=== PATIENT | female | born 1970 | race Caucasian/White ===

== ENCOUNTER 2023-06-08 15:43 | Inpatient (IN) ==
[2023-06-08] MEDS ORDERED: SODIUM CHLORIDE 0.9% 500 ML IV STA (16:27)
[2023-06-08] MEDS ORDERED: ASPIRIN CHEW 324 MG PO STA (16:27)
--- NOTE | 2023-06-08 16:41 | Emergency Department Note ---
History of Present Illness General Chief complaint: Chest Pain Stated complaint: CHEST PAIN,L ARM PAIN,SOB Time Seen by Provider: 06/08/23 16:09 History of Present Illness Maximum Pain Intensity: 4 52-year-old female with past medical history significant for hypertension, hyperlipidemia, chronic tobacco use who presents to the emergency department for evaluation of chest pain. Patient states she started with chest pain around 1 PM this afternoon. She states she was walking around at work when symptoms came on. It is episodic in nature with episodes lasting a few seconds to 1 minute each. She reports that it feels hard to breath and feels lightheaded. She does notice her symptoms to be worse with exertion. It is not pleuritic in nature. She describes her chest pain as a pressure feeling. It is radiating into her left jaw. She does also note that her left arm feels "achy." No lower extremity weakness/numbness/tingling. She also reports last Tuesday she had an episode where vision in both her eyes felt like she was "looking through a drop of water." She states symptoms lasted for 30 minutes and spontaneously resolved. Denies associated headache, dizziness/lightheadedness extremity weakness/numbness/tingling, facial droop, slurred speech, memory loss or confusion, amaurosis fugax. Symptoms have not reoccurred since. Vision is back to her normal. She reports history of SVT vs afib. She is not on any blood thinners. She is suppose to take a baby aspirin but does not. She denies history of blood clots, cancer history, hormone replacement therapy, recent prolonged immobilization or surgeries, lower leg swelling or calf pain. No recent cold-like symptoms, fever/chills, cough, nausea/vomiting, abdominal pain, urinary symptoms, diarrhea/constipation. No hematuria, hematochezia or melena. No history of CVA or OR. She has not taken anything for her symptoms. Home Medications Medication Instructions Recorded Confirmed Type albuterol sulfate 90 mcg/actuation 2 puff inhalation Q6H PRN ASTHMA 10/19/20 06/08/23 History aerosol inhaler ibuprofen 200 mg tablet 400 mg PO Q6H PRN Pain 10/19/20 06/08/23 History aspirin 81 mg tablet,delayed 81 mg PO QAM 03/20/21 06/08/23 History release atorvastatin 20 mg tablet 20 mg PO DAILY 06/08/23 06/08/23 History ibuprofen 800 mg tablet 800 mg PO TID PRN Pain 06/08/23 06/08/23 History metoprolol tartrate 50 mg tablet 50 mg PO TID 06/08/23 06/08/23 History trazodone 50 mg tablet 50 mg PO HS PRN Sleep 06/08/23 06/08/23 History Allergies Allergy/AdvReac Type Severity Reaction Status Date / Time Iodinated Contrast Media Allergy Intermediate CT SCAN Verified 06/08/23 17:14 DYE - HIVES, NEEDED EPI PEN AND BENADRYL lidocaine Allergy Intermediate Hives Verified 06/08/23 17:14 Past Med/Surg History Medical History Anxiety Asthma CONTROLLED Hiatal hernia History of abnormal cervical Pap smear HX 20 YR AGO, PRE CANCEROUS ...HYSTERECTOMY History of colon polyps CANCER FOUND IN POLYP...FOLLOW UP COLONOSCOPY MAY 2021 Tachycardia Surgical History History of arthroscopy of left knee History of cholecystectomy History of colonoscopy History of hysterectomy History of shoulder surgery LEFT Family History Grandfather Family history of esophageal cancer Other Family history of breast cancer in sister Social History Smoking Status: Never smoker Tobacco Type: Cigarettes Cigarettes Per Day: 1 PPD/ADVISED NPO; Do You Dip or Chew Tobacco: No; Hx Alcohol Use: No Preferred Language: Korean Communication Ability: Effective Tail Trimmer Required: No Beliefs That Will Affect Care: None Current Living Situation: Parent Current Living Situation Comment: LIVE WITH DAD Feels Safe at Home: Yes Assistive Devices: Glasses Physical Exam Vital Signs Vital Signs - 24 hr 06/08/23 15:44 06/08/23 16:04 06/08/23 16:48 Temperature 36.6 C Temperature Source Temporal Artery Scan Pulse Rate 72 Pulse Rate [Apical] 64 Pulse Rhythm [Apical] Regular Respiratory Rate 20 18 Respiratory Effort / Characteristics Non-Labored Non-Labored Spontaneous Respiratory Depth Normal Normal Respiratory Pattern Blood Pressure 152/101 H Blood Pressure [Right Arm] 135/86 Blood Pressure Mean 118 Blood Pressure Mean [Right Arm] 102 Blood Pressure Position [Right Arm] Lying Pulse Oximetry 97 92 95 Oxygen Delivery Method Room Air Room Air Room Air Sepsis Recent Fever Within 48 Hours No Sepsis New/Unexplained Change in Mental Status N/A Sepsis Action Taken by Nursing No Action Required 06/08/23 16:50 06/08/23 17:59 06/08/23 20:30 Temperature Temperature Source Pulse Rate 63 Pulse Rate [Apical] 69 52 L Pulse Rhythm [Apical] Regular Regular Respiratory Rate 18 18 Respiratory Effort / Characteristics Non-Labored Spontaneous Non-Labored Spontaneous Respiratory Depth Normal Normal Respiratory Pattern Regular Blood Pressure Blood Pressure [Right Arm] 159/93 H 136/85 Blood Pressure Mean Blood Pressure Mean [Right Arm] 115 102 Blood Pressure Position [Right Arm] Lying Lying Pulse Oximetry 97 95 Oxygen Delivery Method Room Air Room Air Sepsis Recent Fever Within 48 Hours Sepsis New/Unexplained Change in Mental Status Sepsis Action Taken by Nursing 06/08/23 20:54 Temperature Temperature Source Pulse Rate 56 L Pulse Rate [Apical] Pulse Rhythm [Apical] Respiratory Rate Respiratory Effort / Characteristics Respiratory Depth Respiratory Pattern Blood Pressure Blood Pressure [Right Arm] Blood Pressure Mean Blood Pressure Mean [Right Arm] Blood Pressure Position [Right Arm] Pulse Oximetry Oxygen Delivery Method Sepsis Recent Fever Within 48 Hours Sepsis New/Unexplained Change in Mental Status Sepsis Action Taken by Nursing Constitutional: alert and oriented x3. no acute distress. Nontoxic HEENT: normocephalic, atraumatic. normal conjunctiva.PERRLA. EOM's grossly intact. TMs pearly chawla without effusion. Pharynx pink without exudate. Tonsils nonenlarged. Mucus membranes moist Neck: neck is supple, nontender. Midline C-spine nontender Respiratory: lungs are clear to auscultation without wheezes, rhonchi, or rales bilaterally. equal chest rise. normal respiratory effort, no accessory muscle use. No reproducible chest wall tenderness Cardiovascular: normal heart sounds without murmur. regular rate and rhythm. GI: abdomen is soft, nontender. No palpable masses. No rebound tenderness or guarding. No CVA tenderness MSK: Moves all 4 extremities spontaneously. Left upper extremity appears mildly weaker than the right. Range of motion is intact. Peripheral vascular: extremities warm and well perfused with palpable pulses. Neuro: Answers questions appropriately, follows commands. CNII-XII intact. Speech clear, tongue midline, without facial droop. Reports reduced gross sensation left face compared to right. Left upper extremity appears mildly weaker than the right. Normal [id number] test. Normal finger-nose. Psych:appropriate mood and affect. Course Administered Medications Lorazepam (Lorazepam 2 Mg/1 Ml Vial) 0.5 mg IV Q4H PRN PRN Reason: Anxiety Stop: 07/08/23 21:08 Last Admin: 06/08/23 21:20 Dose: 0.5 mg Documented By: TOBIAS Discontinued Medications Aspirin (Aspirin Chew 324 Mg) 324 mg PO NOW STA Stop: 06/08/23 16:28 Last Admin: 06/08/23 16:52 Dose: 324 mg Documented By: TOBIAS Heparin Sodium/Dextrose (Heparin Iv Adult Wt-Based Standard *No* Bolus Protocol) 1 each IV ONE ONE; Protocol Stop: 06/08/23 20:55 Last Admin: 06/08/23 22:14 Dose: Not Given Documented By: TOBIAS Sodium Chloride (Nss) 500 mls @ 999 mls/hr IV .Q31M STA Stop: 06/08/23 16:57 Last Infusion: 06/08/23 17:35 Dose: 0 mls/hr Documented By: Admin: 06/08/23 16:53 Dose: 999 mls/hr Documented By: TOBIAS Nitroglycerin (Nitroglycerin Sl 0.4 Mg/Tab Tab) 0.4 mg SL NOW STA Stop: 06/08/23 20:54 Last Admin: 06/08/23 21:20 Dose: 0.4 mg Documented By: TOBIAS Medical Decision Making Differential Diagnosis Cardiac ischemia, aortic dissection, pulmonary embolism, pneumothorax, pneumonia, pericarditis, myocarditis, cardiac arrhythmia, CVA, electrolyte abnormalities, dehydration, esophageal rupture, GERD, cholecystitis, pancreatitis, musculoskeletal, as well as other pathologies. Laboratory Data Attestation: I reviewed the patient's lab results. 06/08/23 17:58 06/08/23 16:02 Lab Results 06/08/23 06/08/23 06/08/23 Range/Units 16:02 16:02 16:02 WBC Cancelled RBC Cancelled Hgb Cancelled Hct Cancelled MCV Cancelled MCH Cancelled MCHC Cancelled RDW Std Deviation Cancelled RDW Coeff of Joe Cancelled Plt Count Cancelled MPV Cancelled Immature Gran % (Auto) Cancelled Neut % (Auto) Cancelled Lymph % (Auto) Cancelled Clare % (Auto) Cancelled Eos % (Auto) Cancelled Baso % (Auto) Cancelled Neut # (Auto) Cancelled Lymph # (Auto) Cancelled Clare # (Auto) Cancelled Eos # (Auto) Cancelled Baso # (Auto) Cancelled Immature Gran # (Auto) Cancelled Absolute Nucleated RBC Cancelled Nucleated RBC % (auto) Cancelled Neutrophils % (Manual) Cancelled Band Neutrophils % Cancelled Lymphocytes % (Manual) Cancelled Prolymphocyte % Cancelled Reactive Lymphs % (Man) Cancelled Monocytes % (Manual) Cancelled Eosinophils % (Manual) Cancelled Basophils % (Manual) Cancelled Metamyelocytes % (Man) Cancelled Myelocytes % (Man) Cancelled Promyelocytes % (Man) Cancelled Blast Cells % (Manual) Cancelled Plasma Cell % (Manual) Cancelled Other Cells % Cancelled Nucleated RBC % Cancelled Neutrophils # (Manual) Cancelled Band Neutrophils # Cancelled Total Absolute Neuts Cancelled Lymphocytes # (Manual) Cancelled Prolymphocyte # Cancelled Reactive Lymphs # Cancelled Total Abs Lymphocytes Cancelled Monocytes # (Manual) Cancelled Eosinophils # (Manual) Cancelled Basophils # (Manual) Cancelled Metamyelocytes # (Man) Cancelled Myelocytes # (Manual) Cancelled Promyelocytes # (Man) Cancelled Blast Cells # (Man) Cancelled Plasma Cell # (Manual) Cancelled Other Cells # Cancelled Nucleated RBCs # (Man) Cancelled Hypersegmented Neuts Cancelled Hyposegmented Neuts Cancelled Hypogranular Neuts Cancelled Large Granular Lymphs Cancelled # Lrg Granular Lymphs Cancelled Hairy Cells Cancelled Smudge Cells Cancelled Toxic Granulation Cancelled Toxic Vacuolation Cancelled Dohle Bodies Cancelled Minnie Rods Cancelled Platelet Estimate Cancelled Hypogranular Platelets Cancelled Giant Platelets Cancelled Platelet Satelliting Cancelled RBC Morphology Cancelled Polychromasia Cancelled Hypochromasia Cancelled Poikilocytosis Cancelled Basophilic Stippling Cancelled Anisocytosis Cancelled Microcytosis Cancelled Macrocytosis Cancelled Spherocytes Cancelled Pappenheimer Bodies Cancelled Sickle Cells Cancelled Target Cells Cancelled Tear Drop Cells Cancelled Ovalocytes Cancelled Stomatocytes Cancelled [place] Bodies Cancelled Echinocytes Cancelled Acanthocytes (Spur) Cancelled Rouleaux Cancelled RBC Agglutinates Cancelled Schistocytes Cancelled Sezary Cell Cancelled PT Cancelled INR Cancelled APTT Cancelled PTT Ratio Cancelled D-Dimer Cancelled Sodium 138 (136-145) mmol/L Potassium 3.8 (3.5-5.1) mmol/L Chloride 105 (98-107) mmol/L Carbon Dioxide 25 (21-32) mmol/L Anion Gap 8 (3-11) BUN 8 (6-23) mg/dl Creatinine 0.71 (0.6-1.2) mg/dl Est Cr Clr Drug Dosing 101.6 ml/min Est GFR ( Amer) 111.9 ml/min Est GFR (Non-Af Amer) 96.6 ml/min BUN/Creatinine Ratio 11.3 (10-20) Glucose 91 (70-99(Fasting)) mg/dl Calcium 9.9 (8.6-10.3) mg/dl Magnesium (1.7-2.4) mg/dl Total Bilirubin 0.8 (0.2-1.0) mg/dl AST 24 (13-39) U/L ALT 28 (7-52) U/L Alkaline Phosphatase 104 (34-104) U/L Troponin I High Sens 3.3 (0-14) pg/ml Total Protein 8.5 H (6.0-8.3) gm/dl Albumin 4.7 (3.4-5.0) gm/dl Globulin 3.8 (2.5-4.0) gm/dl Albumin/Globulin Ratio 1.2 (0.9-2) Lipase 24 (11-82) U/L Lyme Disease IgG Ab (Negative) Lyme Disease IgM Ab (Negative) Blood Parasites ID Cancelled 06/08/23 06/08/23 06/08/23 Range/Units 16:02 17:57 17:58 WBC 9.45 RBC 5.04 Hgb 15.6 Hct 45.3 MCV 89.9 MCH 31.0 MCHC 34.4 RDW Std Deviation 42.3 RDW Coeff of Joe 12.8 Plt Count 238 MPV 10.7 Immature Gran % (Auto) 0.2 Neut % (Auto) 52.0 Lymph % (Auto) 38.9 Clare % (Auto) 6.7 Eos % (Auto) 1.6 Baso % (Auto) 0.6 Neut # (Auto) 4.91 Lymph # (Auto) 3.68 H Clare # (Auto) 0.63 H Eos # (Auto) 0.15 Baso # (Auto) 0.06 Immature Gran # (Auto) 0.02 Absolute Nucleated RBC Nucleated RBC % (auto) Neutrophils % (Manual) Band Neutrophils % Lymphocytes % (Manual) Prolymphocyte % Reactive Lymphs % (Man) Monocytes % (Manual) Eosinophils % (Manual) Basophils % (Manual) Metamyelocytes % (Man) Myelocytes % (Man) Promyelocytes % (Man) Blast Cells % (Manual) Plasma Cell % (Manual) Other Cells % Nucleated RBC % Neutrophils # (Manual) Band Neutrophils # Total Absolute Neuts Lymphocytes # (Manual) Prolymphocyte # Reactive Lymphs # Total Abs Lymphocytes Monocytes # (Manual) Eosinophils # (Manual) Basophils # (Manual) Metamyelocytes # (Man) Myelocytes # (Manual) Promyelocytes # (Man) Blast Cells # (Man) Plasma Cell # (Manual) Other Cells # Nucleated RBCs # (Man) Hypersegmented Neuts Hyposegmented Neuts Hypogranular Neuts Large Granular Lymphs # Lrg Granular Lymphs Hairy Cells Smudge Cells Toxic Granulation Toxic Vacuolation Dohle Bodies Minnie Rods Platelet Estimate Hypogranular Platelets Giant Platelets Platelet Satelliting RBC Morphology Polychromasia Hypochromasia Poikilocytosis Basophilic Stippling Anisocytosis Microcytosis Macrocytosis Spherocytes Pappenheimer Bodies Sickle Cells Target Cells Tear Drop Cells Ovalocytes Stomatocytes [place] Bodies Echinocytes Acanthocytes (Spur) Rouleaux RBC Agglutinates Schistocytes Sezary Cell PT 11.0 INR 1.0 APTT 30.5 PTT Ratio 1.1 D-Dimer 530 H* Sodium (136-145) mmol/L Potassium (3.5-5.1) mmol/L Chloride (98-107) mmol/L Carbon Dioxide (21-32) mmol/L Anion Gap (3-11) BUN (6-23) mg/dl Creatinine (0.6-1.2) mg/dl Est Cr Clr Drug Dosing ml/min Est GFR ( Amer) ml/min Est GFR (Non-Af Amer) ml/min BUN/Creatinine Ratio (10-20) Glucose (70-99(Fasting)) mg/dl Calcium (8.6-10.3) mg/dl Magnesium (1.7-2.4) mg/dl Total Bilirubin (0.2-1.0) mg/dl AST (13-39) U/L ALT (7-52) U/L Alkaline Phosphatase (34-104) U/L Troponin I High Sens (0-14) pg/ml Total Protein (6.0-8.3) gm/dl Albumin (3.4-5.0) gm/dl Globulin (2.5-4.0) gm/dl Albumin/Globulin Ratio (0.9-2) Lipase (11-82) U/L Lyme Disease IgG Ab Negative (Negative) Lyme Disease IgM Ab Negative (Negative) Blood Parasites ID 06/08/23 Range/Units 18:55 WBC RBC Hgb Hct MCV MCH MCHC RDW Std Deviation RDW Coeff of Joe Plt Count MPV Immature Gran % (Auto) Neut % (Auto) Lymph % (Auto) Clare % (Auto) Eos % (Auto) Baso % (Auto) Neut # (Auto) Lymph # (Auto) Clare # (Auto) Eos # (Auto) Baso # (Auto) Immature Gran # (Auto) Absolute Nucleated RBC Nucleated RBC % (auto) Neutrophils % (Manual) Band Neutrophils % Lymphocytes % (Manual) Prolymphocyte % Reactive Lymphs % (Man) Monocytes % (Manual) Eosinophils % (Manual) Basophils % (Manual) Metamyelocytes % (Man) Myelocytes % (Man) Promyelocytes % (Man) Blast Cells % (Manual) Plasma Cell % (Manual) Other Cells % Nucleated RBC % Neutrophils # (Manual) Band Neutrophils # Total Absolute Neuts Lymphocytes # (Manual) Prolymphocyte # Reactive Lymphs # Total Abs Lymphocytes Monocytes # (Manual) Eosinophils # (Manual) Basophils # (Manual) Metamyelocytes # (Man) Myelocytes # (Manual) Promyelocytes # (Man) Blast Cells # (Man) Plasma Cell # (Manual) Other Cells # Nucleated RBCs # (Man) Hypersegmented Neuts Hyposegmented Neuts Hypogranular Neuts Large Granular Lymphs # Lrg Granular Lymphs Hairy Cells Smudge Cells Toxic Granulation Toxic Vacuolation Dohle Bodies Minnie Rods Platelet Estimate Hypogranular Platelets Giant Platelets Platelet Satelliting RBC Morphology Polychromasia Hypochromasia Poikilocytosis Basophilic Stippling Anisocytosis Microcytosis Macrocytosis Spherocytes Pappenheimer Bodies Sickle Cells Target Cells Tear Drop Cells Ovalocytes Stomatocytes [place] Bodies Echinocytes Acanthocytes (Spur) Rouleaux RBC Agglutinates Schistocytes Sezary Cell PT INR APTT PTT Ratio D-Dimer Sodium (136-145) mmol/L Potassium (3.5-5.1) mmol/L Chloride (98-107) mmol/L Carbon Dioxide (21-32) mmol/L Anion Gap (3-11) BUN (6-23) mg/dl Creatinine (0.6-1.2) mg/dl Est Cr Clr Drug Dosing ml/min Est GFR ( Amer) ml/min Est GFR (Non-Af Amer) ml/min BUN/Creatinine Ratio (10-20) Glucose (70-99(Fasting)) mg/dl Calcium (8.6-10.3) mg/dl Magnesium 2.2 (1.7-2.4) mg/dl Total Bilirubin (0.2-1.0) mg/dl AST (13-39) U/L ALT (7-52) U/L Alkaline Phosphatase (34-104) U/L Troponin I High Sens 3.1 (0-14) pg/ml Total Protein (6.0-8.3) gm/dl Albumin (3.4-5.0) gm/dl Globulin (2.5-4.0) gm/dl Albumin/Globulin Ratio (0.9-2) Lipase (11-82) U/L Lyme Disease IgG Ab (Negative) Lyme Disease IgM Ab (Negative) Blood Parasites ID Imaging Data My Impression: CXR per my interpretation without focal consolidation, pneumothorax or pleural effusion Radiologist's Impression: Chest X-Ray 06/08/23 16:27 XR chest 1V portable CLINICAL HISTORY: Chest pain, nonspecific TECHNIQUE: Single frontal radiograph of the chest was obtained. Comparison: Comparison is made to chest radiograph 10/19/2020 FINDINGS: No lines and tubes are seen. Calcified aortic knob is seen. The lungs are clear. No evidence of pleural effusion or pneumothorax. IMPRESSION: No acute chest disease. ACT 112: Negative or not required by law. Electronically signed by: Rj Arnett M.D. 06/08/2023 5:[address] 06/08/23 16:29 CT SCAN OF THE BRAIN WITHOUT IV CONTRAST CLINICAL HISTORY: Blurry vision. Left upper extremity weakness. Facial numbness. COMPARISON STUDY: No priors. TECHNIQUE: Unenhanced axial CT scan of the brain is performed from the vertex to the skull base. A dose lowering technique was utilized adhering to the principles of ALARA. CT DOSE: 547.75 mGy.cm FINDINGS: Brain parenchyma: The brain parenchyma is normal in appearance. There is no hemorrhage, mass effect, or evidence of acute territorial ischemia by CT criteria. Chawla-white matter differentiation is preserved. No extra-axial fluid collection is seen. Ventricles, sulci, cisterns: Normal in configuration. Intracranial vasculature: There is mild atherosclerotic calcification of the cavernous carotid arteries. Calvarium: Unremarkable. Sinuses and mastoids: The visualized paranasal sinuses are clear. The mastoid air cells are well pneumatized. Orbits: The bony orbits are grossly intact. IMPRESSION: There is no hemorrhage, mass effect, or evidence of acute territorial ischemia by CT criteria. ACT 112: Negative or not required by law. Electronically signed by: Jaiden Astudillo M.D. 06/08/2023 5:10 PM Head MRA 06/08/23 20:54 MR ANGIOGRAM OF THE BRAIN CLINICAL HISTORY: Visual changes. Transient ischemic attack. COMPARISON STUDY: MRI of the brain performed concurrently and 06/08/2023.. TECHNIQUE: 3-D [id number] MR angiography of the intracranial circulation is performed. 3-D tumble views are created and assessed. IV contrast was not administered for this examination. FINDINGS: The internal carotid arteries are widely patent bilaterally, as are the anterior and middle cerebral arteries. The vertebrobasilar system and posterior cerebral arteries are widely patent. The vertebral arteries are codominant. There is a right posterior communicating artery. There is no aneurysm, high-grade stenosis, or focal vessel cutoff seen throughout the intracranial circulation. The brain parenchyma is normal as visualized. IMPRESSION: Unremarkable MR angiogram of the brain. ACT 112: Negative or not required by law. Electronically signed by: Jaiden Astudillo M.D. 06/08/2023 10:23 PM MDM Narrative 52-year-old female who presents to the emergency department for evaluation of intermittent chest pain and an episode of blurry vision. Review pertinent for system past medical history performed. Vital signs in ED stable, afebrile. Patient reports left-sided chest pain that radiates into her jaw and down her left arm since 1 PM this afternoon. It is episodic in nature lasting few seconds to 1 minute at a time. It is associated with exertion. Not pleuritic in nature. She also reports a history of bilateral blurry vision on Tuesday that resolved spontaneously. IV access was established and labs were obtained. CBC without leukocytosis or acute anemia. CMP without significant electrolyte abnormalities. Renal function within normal limits. LFTs and lipase unremarkable. D-dimer 530 (age adjusted 540 ug/L). Troponin x 2 negative. EKG demonstrates normal sinus rhythm at a rate of 72 bpm without evidence of is chemic changes. Chest x-ray unremarkable. On exam, patient is nontoxic-appearing in no acute distress. She is maintaining normal O2 saturations on room air although mildly hypoxic 92-95. She does not wear any oxygen at home. History of smoker. Lungs CTA. Abdomen is benign. Neuro exam demonstrates mild left upper extremity weakness when compared to the right as well as reduced gross sensation to the left side of the face. No other focal deficits. GCS 15. Given exam findings, head CT was performed. No evidence of acute infarct or hemorrhage. Patient was placed on a classroom monitor and at time of my evaluation demonstrates normal sinus rhythm and a rate of 63 bpm. She was given 325 mg chewed aspirin. She declined need for pain medications. Patient was reevaluated on multiple occasions throughout ED stay. She remained stable with no new concerns. Hemodynamically stable. She did not have any episodes of recurrent chest pain. She was updated on all exam findings and test results. Workup today has been relatively reassuring. No evidence of acute OR. No evidence of CVA on CT. I do not suspect aortic dissection. We discussed D- dimer and given higher end of normal with age-adjusted as well as anaphylactic contrast allergy, CTA of the chest was deferred. I do feel patient would benefit from admission to the hospital for further cardiac and neurological workup based on today's presentation. Patient was agreeable to this plan. Case was discussed with hospitalist, Dr. Cash, who graciously accepted patient to his service for further evaluation and management. She was admitted in stable condition. Case was discussed with ED attending, Dr. Hunt who agrees with workup and treatment plan. Impression & Plan Atypical chest pain, Left arm weakness Discharge Plan Visit Data Chief Complaint: Chest Pain Stated Complaint: CHEST PAIN,L ARM PAIN,SOB ED Provider: Jluis Hunt ED Midlevel Provider: Betty Armstrong Discharge Problem: Atypical chest pain, Left arm weakness Patient Disposition: Home - Self-Care Discharge Instructions Interventions: ED Discharge Assessment Last Done: 06/08/23 21:51
--- NOTE | 2023-06-08 17:10 | XRay Report ---
XR chest 1V portable CLINICAL HISTORY: Chest pain, nonspecific TECHNIQUE: Single frontal radiograph of the chest was obtained. Comparison: Comparison is made to chest radiograph 10/19/2020 FINDINGS: No lines and tubes are seen. Calcified aortic knob is seen. The lungs are clear. No evidence of pleur al effusion or pneumothorax. IMPRESSION: No acute chest disease. ACT 112: Negative or not required by law. Electronically signed by: Rj Arnett M.D. 06/08/2023 5:09 PM
--- NOTE | 2023-06-08 17:11 | CT Scan Report ---
CT SCAN OF THE BRAIN WITHOUT IV CONTRAST CLINICAL HISTORY: Blurry vision. Left upper extremity weakness. Facial numbness. COMPARISON STUDY: No priors. TECHNIQUE: Unenhanced axial CT scan of the brain is performed from the vertex to the skull base. A d ose lowering technique was utilized adhering to the principles of ALARA. CT DOSE: 547.75 mGy.cm FINDINGS: Brain parenchyma: The brain parenchyma is normal in appearance. There is no hemorrhage, mass effect, or evidence of acute territorial ischemia by CT criteria. Chawla-white matter differentiation is preser nelly. No extra-axial fluid collection is seen. Ventricles, sulci, cisterns: Normal in configuration. Intracranial vasculature: There is mild atherosclerotic calcification of the cavernous carotid arteri es. Calvarium: Unremarkable. Sinuses and mastoids: The visualized paranasal sinuses are clear. The mastoid air cells are well pneu matized. Orbits: The bony orbits are grossly intact. IMPRESSION: There is no hemorrhage, mass effect, or evidence of acute territorial ischemia by CT rebekah yee. ACT 112: Negative or not required by law. Electronically signed by: Jaiden Astudillo M.D. 06/08/2023 5:10 PM
[2023-06-08 17:14] LABS: Albumin Globulin Ratio 1.2 (0.9-2); Albumin Level 4.7 gm/dl (3.4-5.0); BUN Creatinine Ratio 11.3 (10-20); Bilirubin,Total 0.8 mg/dl (0.2-1.0); Calcium 9.9 mg/dl (8.6-10.3); Creatinine Clr Calc Pharmacy 101.6 ml/min; Est GFR (African American) 111.9 ml/min; Est GFR (Non-African American) 96.6 ml/min; Globulin 3.8 gm/dl (2.5-4.0); Potassium 3.8 mmol/L (3.5-5.1); Total Protein 8.5 gm/dl (6.0-8.3)
[2023-06-08 17:21] LABS: Troponin I High Sensitivity 3.3 pg/ml (0-14)
[2023-06-08 18:35] LABS: Basophils # (auto) 0.06 K/uL (0-0.2); Basophils % (auto) 0.6 %; Eosinophils # (auto) 0.15 K/uL (0-0.50); Eosinophils % (auto) 1.6 %; Hematocrit (blood only) 45.3 % (37.0-47.0); Hemoglobin 15.6 g/dl (12.0-16.0); Immature Granulocytes # (auto) 0.02 K/uL (0.01-0.20); Immature Granulocytes % (auto) 0.2 %; Lymphocytes # (auto) 3.68 K/uL (1.2-3.4); Lymphocytes % (auto) 38.9 %; Mean Corpuscular Hgb Conc 34.4 g/dL (32.0-36.0); Mean Corpuscular Volume 89.9 fL (80.0-100.0); Mean Platelet Volume 10.7 fL (9.4-12.4); Monocytes # (auto) 0.63 K/uL (0.11-0.59); Monocytes % (auto) 6.7 %; Neutrophils # (auto) 4.91 K/uL (1.40-6.50); Platelet Count 238 K/uL (130-400); RDW Coefficient of Variation 12.8 % (11.5-14.5); RDW Standard Deviation 42.3 fL (36.4-46.3); Red Blood Count 5.04 M/uL (4.20-5.40); White Blood Count 9.45 K/ul (4.8-10.8)
[2023-06-08 19:14] LABS: Partial Thromboplastin Ratio 1.1; Partial Thromboplastin Time 30.5 Seconds (21.0-31.0)
[2023-06-08 19:33] LABS: D Dimer 530 ug/L FEU (0-500)
[2023-06-08 19:51] LABS: Troponin I High Sensitivity 3.1 pg/ml (0-14)
[2023-06-08 20:28] LABS: Magnesium 2.2 mg/dl (1.7-2.4)
[2023-06-08] MEDS ORDERED: NITROGLYCERIN SL 0.4 MG/TAB TAB SL STA (20:53)
[2023-06-08] MEDS ORDERED: Heparin IV Adult Wt-Based Standard *NO* Bolus Protocol IV ONE (20:54)
[2023-06-08] MEDS ORDERED: Heparin IV Adult Wt-Based Low-Dose *NO* Bolus Protocol IV SCH (20:55)
--- NOTE | 2023-06-08 20:56 | History & Physical Report ---
Date of Service June 08, 2023 Assessment & Plan (1) Chest pain: Plan: Left-sided chest pain rule out ACS given patient's risk factors for ischemic heart disease Rule out PE given abnormal D-dimer PSVT/paroxysmal atrial flutter as per records, patient currently NSR hypertension, stable hyperlipidemia on statin Rx bronchial asthma, stable ongoing tobacco abuse OBS PCU Aspirin for CAD prevention for now Cardiology consult Re: Chest pain N.p.o. until patient seen by cardiology in anticipation of ischemic workup VQ scan/LE Dopplers for PE workup (CT angio precluded by IV dye allergy) IV heparin until PE ruled out Nicotine patch as needed DVT prophylaxis. IV heparin Full code Text document was generated using [employer] voice recognition software. It may contain grammatical or spelling errors. Kindly contact undersigned for clarification of any documentation item in question. History of Present Illness Chief Complaint: Left sided chest pain Primary Care Provider: Ant Jacobs MD History obtained from patient, family, and records. Medical history significant for PSVT, paroxysmal atrial flutter as per records, hypertension, hyperlipidemia, bronchial asthma, ongoing tobacco abuse. Last week, patient had transient visual disturbance symptoms as if she was lo oking through a drop of water. No headache symptoms. No facial weakness or slurred speech symptoms. No arm or leg weakness. No consultations done. Patient not compliant with home aspirin because she is prone to bleeding. Around 1 PM today, patient noted left-sided chest pain going to her left arm and left jaw. Some shortness of breath. Non pleuritic chest pain. Admits to a lot of of personal and work stress. Medical History as above Surgical History : Left knee surgery, cholecystectomy, SHYLA Family History : Heart disease, breast cancer, DVT, DM, mood disorder Personal/Social history : 1 pack daily, no EtOH intake, [employer] manager Allergies Allergy/AdvReac Type Severity Reaction Status Date / Time Iodinated Contrast Media Allergy Intermediate CT SCAN Verified 06/08/23 17:14 DYE - HIVES, NEEDED EPI PEN AND BENADRYL lidocaine Allergy Intermediate Hives Verified 06/08/23 17:14 Home Medications Medication Instructions Recorded Confirmed Type albuterol sulfate 90 mcg/actuation 2 puff inhalation Q6H PRN ASTHMA 10/19/20 06/08/23 History aerosol inhaler ibuprofen 200 mg tablet 400 mg PO Q6H PRN Pain 10/19/20 06/08/23 History aspirin 81 mg tablet,delayed 81 mg PO QAM 03/20/21 06/08/23 History release atorvastatin 20 mg tablet 20 mg PO DAILY 06/08/23 06/08/23 History ibuprofen 800 mg tablet 800 mg PO TID PRN Pain 06/08/23 06/08/23 History metoprolol tartrate 50 mg tablet 50 mg PO TID 06/08/23 06/08/23 History trazodone 50 mg tablet 50 mg PO HS PRN Sleep 06/08/23 06/08/23 History Past Med/Surg History Medical History Anxiety Asthma CONTROLLED Hiatal hernia History of abnormal cervical Pap smear HX 20 YR AGO, PRE CANCEROUS ...HYSTERECTOMY History of colon polyps CANCER FOUND IN POLYP...FOLLOW UP COLONOSCOPY MAY 2021 Tachycardia Surgical History History of arthroscopy of left knee History of cholecystectomy History of colonoscopy History of hysterectomy History of shoulder surgery LEFT Family History Grandfather Family history of esophageal cancer Other Family history of breast cancer in sister Social History Smoking Status: Current every day smoker Tobacco Type: Cigarettes Cigarettes Per Day: 45; Do You Dip or Chew Tobacco: No; Hx Alcohol Use: No Hx Substance Use: No Preferred Language: Vietnamese Communication Ability: Effective Rehab Department Manager Required: No Beliefs That Will Affect Care: None Current Living Situation: Parent Current Living Situation Comment: lives with father Other Information That Helps Us Care for You: No Feels Safe at Home: Yes Safety Concerns: Feels Safe At This Time Assistive Devices: None Review of Systems Review of Systems: As per HPI, all other systems reviewed and negative Physical Exam Physical Exam: GENERAL: Comfortable, obese, no respiratory distress SKIN: Normal color, warm HEENT: [place] palpebral conjunctivae, no ptosis, moist buccal mucosa NECK : Supple, no tenderness CHEST : CTA, short neck, no tenderness HEART : Bradycardic, no obvious murmurs ABDOMEN: Some distention, nontender EXTREMITIES : No LE swelling/tenderness, no other conspicuous deformities noted NEUROLOGIC : Coherent, no facial asymmetry, no other gross focality Results & Data Results & Data Vital Signs (Past 12 Hours) Vital Signs Temp Pulse Pulse Resp BP BP Pulse Ox 06/08/23 20:30 52 L 18 136/85 95 06/08/23 17:59 69 18 159/93 H 97 06/08/23 16:50 63 06/08/23 16:48 95 06/08/23 16:04 64 18 135/86 92 06/08/23 15:44 36.6 C 72 20 152/101 H 97 O2 Del Method 06/08/23 20:30 Room Air 06/08/23 17:59 Room Air 06/08/23 16:50 06/08/23 16:48 Room Air 06/08/23 16:04 Room Air 06/08/23 15:44 Room Air Laboratory Results Laboratory Results WBC 9.45 K/ul (4.8-10.8) 06/08/23 17:58 RBC 5.04 M/uL (4.20-5.40) 06/08/23 17:58 Hgb 15.6 g/dl (12.0-16.0) 06/08/23 17:58 Hct 45.3 % (37.0-47.0) 06/08/23 17:58 MCV 89.9 fL (80.0-100.0) 06/08/23 17:58 MCH 31.0 pg (25.0-34.0) 06/08/23 17:58 MCHC 34.4 g/dL (32.0-36.0) 06/08/23 17:58 RDW Std Deviation 42.3 fL (36.4-46.3) 06/08/23 17:58 RDW Coeff of Joe 12.8 % (11.5-14.5) 06/08/23 17:58 Plt Count 238 K/uL (130-400) 06/08/23 17:58 MPV 10.7 fL (9.4-12.4) 06/08/23 17:58 Immature Gran % (Auto) 0.2 % 06/08/23 17:58 Neut % (Auto) 52.0 % 06/08/23 17:58 Lymph % (Auto) 38.9 % 06/08/23 17:58 [place] % (Auto) 6.7 % 06/08/23 17:58 Eos % (Auto) 1.6 % 06/08/23 17:58 Baso % (Auto) 0.6 % 06/08/23 17:58 Neut # (Auto) 4.91 K/uL (1.40-6.50) 06/08/23 17:58 Lymph # (Auto) 3.68 K/uL (1.2-3.4) H 06/08/23 17:58 [place] # (Auto) 0.63 K/uL (0.11-0.59) H 06/08/23 17:58 Eos # (Auto) 0.15 K/uL (0-0.50) 06/08/23 17:58 Baso # (Auto) 0.06 K/uL (0-0.2) 06/08/23 17:58 Immature Gran # (Auto) 0.02 K/uL (0.01-0.20) 06/08/23 17:58 Absolute Nucleated RBC Cancelled 06/08/23 16:02 Nucleated RBC % (auto) Cancelled 06/08/23 16:02 Neutrophils % (Manual) Cancelled 06/08/23 16:02 Band Neutrophils % Cancelled 06/08/23 16:02 Lymphocytes % (Manual) Cancelled 06/08/23 16:02 Prolymphocyte % Cancelled 06/08/23 16:02 Reactive Lymphs % (Man) Cancelled 06/08/23 16:02 Monocytes % (Manual) Cancelled 06/08/23 16:02 Eosinophils % (Manual) Cancelled 06/08/23 16:02 Basophils % (Manual) Cancelled 06/08/23 16:02 Metamyelocytes % (Man) Cancelled 06/08/23 16:02 Myelocytes % (Man) Cancelled 06/08/23 16:02 Promyelocytes % (Man) Cancelled 06/08/23 16:02 Blast Cells % (Manual) Cancelled 06/08/23 16:02 Plasma Cell % (Manual) Cancelled 06/08/23 16:02 Other Cells % Cancelled 06/08/23 16:02 Nucleated RBC % Cancelled 06/08/23 16:02 Neutrophils # (Manual) Cancelled 06/08/23 16:02 Band Neutrophils # Cancelled 06/08/23 16:02 Total Absolute Neuts Cancelled 06/08/23 16:02 Lymphocytes # (Manual) Cancelled 06/08/23 16:02 Prolymphocyte # Cancelled 06/08/23 16:02 Reactive Lymphs # Cancelled 06/08/23 16:02 Total Abs Lymphocytes Cancelled 06/08/23 16:02 Monocytes # (Manual) Cancelled 06/08/23 16:02 Eosinophils # (Manual) Cancelled 06/08/23 16:02 Basophils # (Manual) Cancelled 06/08/23 16:02 Metamyelocytes # (Man) Cancelled 06/08/23 16:02 Myelocytes # (Manual) Cancelled 06/08/23 16:02 Promyelocytes # (Man) Cancelled 06/08/23 16:02 Blast Cells # (Man) Cancelled 06/08/23 16:02 Plasma Cell # (Manual) Cancelled 06/08/23 16:02 Other Cells # Cancelled 06/08/23 16:02 Nucleated RBCs # (Man) Cancelled 06/08/23 16:02 Hypersegmented Neuts Cancelled 06/08/23 16:02 Hyposegmented Neuts Cancelled 06/08/23 16:02 Hypogranular Neuts Cancelled 06/08/23 16:02 Large Granular Lymphs Cancelled 06/08/23 16:02 # Lrg Granular Lymphs Cancelled 06/08/23 16:02 Hairy Cells Cancelled 06/08/23 16:02 Smudge Cells Cancelled 06/08/23 16:02 Toxic Granulation Cancelled 06/08/23 16:02 Toxic Vacuolation Cancelled 06/08/23 16:02 Dohle Bodies Cancelled 06/08/23 16:02 Minnie Rods Cancelled 06/08/23 16:02 Platelet Estimate Cancelled 06/08/23 16:02 Hypogranular Platelets Cancelled 06/08/23 16:02 Giant Platelets Cancelled 06/08/23 16:02 Platelet Satelliting Cancelled 06/08/23 16:02 RBC Morphology Cancelled 06/08/23 16:02 Polychromasia Cancelled 06/08/23 16:02 Hypochromasia Cancelled 06/08/23 16:02 Poikilocytosis Cancelled 06/08/23 16:02 Basophilic Stippling Cancelled 06/08/23 16:02 Anisocytosis Cancelled 06/08/23 16:02 Microcytosis Cancelled 06/08/23 16:02 Macrocytosis Cancelled 06/08/23 16:02 Spherocytes Cancelled 06/08/23 16:02 Pappenheimer Bodies Cancelled 06/08/23 16:02 Sickle Cells Cancelled 06/08/23 16:02 Target Cells Cancelled 06/08/23 16:02 Tear Drop Cells Cancelled 06/08/23 16:02 Ovalocytes Cancelled 06/08/23 16:02 Stomatocytes Cancelled 06/08/23 16:02 Isabel-Boykin Bodies Cancelled 06/08/23 16:02 Echinocytes Cancelled 06/08/23 16:02 Acanthocytes (Spur) Cancelled 06/08/23 16:02 Rouleaux Cancelled 06/08/23 16:02 RBC Agglutinates Cancelled 06/08/23 16:02 Schistocytes Cancelled 06/08/23 16:02 Sezary Cell Cancelled 06/08/23 16:02 PT 11.0 Seconds (9.0-12.0) 06/08/23 17:57 INR 1.0 (0.9-1.1) 06/08/23 17:57 APTT 30.5 Seconds (21.0-31.0) 06/08/23 17:57 PTT Ratio 1.1 06/08/23 17:57 D-Dimer 530 ug/L FEU (0-500) H* 06/08/23 17:57 Sodium 138 mmol/L (136-145) 06/08/23 16:02 Potassium 3.8 mmol/L (3.5-5.1) 06/08/23 16:02 Chloride 105 mmol/L (98-107) 06/08/23 16:02 Carbon Dioxide 25 mmol/L (21-32) 06/08/23 16:02 Anion Gap 8 (3-11) 06/08/23 16:02 BUN 8 mg/dl (6-23) 06/08/23 16:02 Creatinine 0.71 mg/dl (0.6-1.2) 06/08/23 16:02 Est Cr Clr Drug Dosing 101.6 ml/min 06/08/23 16:02 Est GFR ( Amer) 111.9 ml/min 06/08/23 16:02 Est GFR (Non-Af Amer) 96.6 ml/min 06/08/23 16:02 BUN/Creatinine Ratio 11.3 (10-20) 06/08/23 16:02 Glucose 91 mg/dl (70-99(Fasting)) 06/08/23 16:02 Calcium 9.9 mg/dl (8.6-10.3) 06/08/23 16:02 Magnesium 2.2 mg/dl (1.7-2.4) 06/08/23 18:55 Total Bilirubin 0.8 mg/dl (0.2-1.0) 06/08/23 16:02 AST 24 U/L (13-39) 06/08/23 16:02 ALT 28 U/L (7-52) 06/08/23 16:02 Alkaline Phosphatase 104 U/L (34-104) 06/08/23 16:02 Troponin I High Sens 3.1 pg/ml (0-14) 06/08/23 18:55 Total Protein 8.5 gm/dl (6.0-8.3) H 06/08/23 16:02 Albumin 4.7 gm/dl (3.4-5.0) 06/08/23 16:02 Globulin 3.8 gm/dl (2.5-4.0) 06/08/23 16:02 Albumin/Globulin Ratio 1.2 (0.9-2) 06/08/23 16:02 Lipase 24 U/L (11-82) 06/08/23 16:02 Blood Parasites ID Cancelled 06/08/23 16:02 Impressions Chest X-Ray 06/08/23 16:27 XR chest 1V portable CLINICAL HISTORY: Chest pain, nonspecific TECHNIQUE: Single frontal radiograph of the chest was obtained. Comparison: Comparison is made to chest radiograph 10/19/2020 FINDINGS: No lines and tubes are seen. Calcified aortic knob is seen. The lungs are clear. No evidence of pleural effusion or pneumothorax. IMPRESSION: No acute chest disease. ACT 112: Negative or not required by law. Electronically signed by: Rj Arnett M.D. 06/08/2023 5:[address] 06/08/23 16:29 CT SCAN OF THE BRAIN WITHOUT IV CONTRAST CLINICAL HISTORY: Blurry vision. Left upper extremity weakness. Facial numbness. COMPARISON STUDY: No priors. TECHNIQUE: Unenhanced axial CT scan of the brain is performed from the vertex to the skull base. A dose lowering technique was utilized adhering to the principles of ALARA. CT DOSE: 547.75 mGy.cm FINDINGS: Brain parenchyma: The brain parenchyma is normal in appearance. There is no hemorrhage, mass effect, or evidence of acute territorial ischemia by CT criteria. Chawla-white matter differentiation is preserved. No extra-axial fluid collection is seen. Ventricles, sulci, cisterns: Normal in configuration. Intracranial vasculature: There is mild atherosclerotic calcification of the cavernous carotid arteries. Calvarium: Unremarkable. Sinuses and mastoids: The visualized paranasal sinuses are clear. The mastoid air cells are well pneumatized. Orbits: The bony orbits are grossly intact. IMPRESSION: There is no hemorrhage, mass effect, or evidence of acute territorial ischemia by CT criteria. ACT 112: Negative or not required by law. Electronically signed by: Jaiden Astudillo M.D. 06/08/2023 5:10 PM Brain MRI: No acute intracranial abnormality. MRA brain: Unremarkable MR angiogram of the brain. Diagnostic Findings EKG as per my interpretation : Rate 70, NSR, LAD, LAFB, septal infarct, no ischemia
[2023-06-08] MEDS ORDERED: PROMETHAZINE HCL 12.5 MG in SODIUM CHLORIDE 0.9% 50 ML IV PRN (21:00)
[2023-06-08] MEDS ORDERED: traMADol HCL 50 MG TABLET PO PRN (21:00)
[2023-06-08] MEDS ORDERED: LORazepam 0.5 MG TAB PO PRN (21:00)
[2023-06-08] MEDS ORDERED: MoRPHine SULFATE 4 MG/ML 1 ML CARP\\VIAL IV PRN (21:00)
[2023-06-08] MEDS ORDERED: LORazepam 2 MG/1 ML VIAL IV PRN (21:09)
[2023-06-08] MEDS ORDERED: HEPARIN SODIUM/DEXTROSE 25,000 UNITS/500 ML BAG IV SCH ×2 (21:15)
[2023-06-08 21:46] LABS: Lyme Ab IgG w/WB Rflx Negative (Negative); Lyme Ab IgM w/WB Rflx Negative (Negative)
[2023-06-08] MEDS ORDERED: ACETAMINOPHEN 325 MG TAB PO PRN (21:51)
[2023-06-08] MEDS ORDERED: traZODone HCL 50 MG TAB PO PRN (21:51)
--- NOTE | 2023-06-08 22:25 | Magnetic Resonance Report ---
MR ANGIOGRAM OF THE BRAIN CLINICAL HISTORY: Visual changes. Transient ischemic attack. COMPARISON STUDY: MRI of the brain performed concurrently and 06/08/2023.. TECHNIQUE: 3-D [id number] MR angiography of the intracranial circulation is performed. 3-D tumble views are created and assessed. IV contrast was not administered for this examination. FINDINGS: The internal carotid arteries are widely patent bilaterally, as are the anterior and middle cerebral arteries. The vertebrobasilar system and posterior cerebral arteries are widely patent. The vertebral arteries are codominant. There is a right posterior communicating artery. There is no aneu rysm, high-grade stenosis, or focal vessel cutoff seen throughout the intracranial circulation. The b rain parenchyma is normal as visualized. IMPRESSION: Unremarkable MR angiogram of the brain. ACT 112: Negative or not required by law. Electronically signed by: Jaiden Astudillo M.D. 06/08/2023 10:23 PM
--- NOTE | 2023-06-08 22:41 | Magnetic Resonance Report ---
MRI OF THE BRAIN WITHOUT IV CONTRAST CLINICAL HISTORY: Transient ischemic attack. COMPARISON STUDY: CT of the brain dated 06/08/2023. TECHNIQUE: MRI of the brain was performed utilizing various T1 and T2-weighted sequences in the axial , sagittal, and coronal planes. IV contrast was not administered for this examination. FINDINGS: Brain parenchyma: The brain parenchyma is normal in appearance. There is no hemorrhage or mass effect . There is no restricted diffusion to suggest acute ischemia. Chawla-white matter differentiation is pr eserved. No extra-axial fluid collection is seen. The cerebellar tonsils are normal in configuration. Ventricles, sulci, and cisterns: Normal in configuration. Pituitary and sella: Unremarkable. Intracranial vasculature: Normal flow voids are maintained at the skull base. Orbits: The bony orbits are grossly intact. Orbital contents are normal in appearance. Sinuses and mastoids: There is a 12 mm retention cyst in the right maxillary antrum. The remaining pa ranasal sinuses and the mastoid air cells are clear. Calvarium: Unremarkable. Cervical cord: Partially visualized cervical spinal cord is normal in morphology and signal intensity . IMPRESSION: No acute intracranial abnormality. ACT 112: Negative or not required by law. Electronically signed by: Jaiden Astudillo M.D. 06/08/2023 10:39 PM
--- NOTE | 2023-06-08 23:39 | Ultrasound Report ---
ULTRASOUND BILATERAL LOWER EXTREMITY VENOUS CLINICAL HISTORY: Atypical chest pain. Elevated d-dimer. Clinical concern for deep venous thrombosis. COMPARISON STUDY: Left lower extremity venous ultrasound dated 05/18/2019. TECHNIQUE: Real-time, grayscale, and color Doppler sonography of the deep veins of the right and left lower extremity was performed from the inguinal crease to the calf. Compression and augmentation wer e utilized. FINDINGS: There is no sonographic evidence of deep venous thrombosis identified in the right or left lower extremity. The common femoral, superficial femoral, and popliteal veins are patent and normally compressible bilaterally. The greater saphenous vein and the profunda femoris vein at the junction w ith the common femoral vein are clear in both legs. The visualized calf veins are patent bilaterally. IMPRESSION: There is no sonographic evidence of deep venous thrombosis identified in the right or lef t lower extremity. ACT 112: Negative or not required by law. Electronically signed by: Jaiden Astudillo M.D. 06/08/2023 11:37 PM
[2023-06-09] MEDS ORDERED: D5W AND LACTATED RINGERS 1,000 ML IV SCH
[2023-06-09 04:53] LABS: Hematocrit (blood only) 43.4 % (37.0-47.0); Mean Corpuscular Hemoglobin 30.5 pg (25.0-34.0); Mean Corpuscular Hgb Conc 34.6 g/dL (32.0-36.0); Mean Corpuscular Volume 88.4 fL (80.0-100.0); Mean Platelet Volume 10.6 fL (9.4-12.4); Platelet Count 217 K/uL (130-400); RDW Coefficient of Variation 12.7 % (11.5-14.5); RDW Standard Deviation 41.4 fL (36.4-46.3); Red Blood Count 4.91 M/uL (4.20-5.40); White Blood Count 8.22 K/ul (4.8-10.8)
[2023-06-09 05:09] LABS: BUN Creatinine Ratio 13.6 (10-20); Calcium 8.7 mg/dl (8.6-10.3); Creatinine Clr Calc Pharmacy 122.3 ml/min; Est GFR (African American) 120.4 ml/min; Est GFR (Non-African American) 103.9 ml/min; Potassium 3.7 mmol/L (3.5-5.1)
[2023-06-09 05:16] LABS: Troponin I High Sensitivity 2.7 pg/ml (0-14)
[2023-06-09 05:18] LABS: Basophils # (auto) 0.05 K/uL (0-0.2); Basophils % (auto) 0.6 %; Eosinophils # (auto) 0.15 K/uL (0-0.50); Eosinophils % (auto) 1.8 %; Immature Granulocytes # (auto) 0.01 K/uL (0.01-0.20); Immature Granulocytes % (auto) 0.1 %; Lymphocytes # (auto) 4.43 K/uL (1.2-3.4); Lymphocytes % (auto) 53.9 %; Monocytes # (auto) 0.52 K/uL (0.11-0.59); Monocytes % (auto) 6.3 %; Neutrophils # (auto) 3.06 K/uL (1.40-6.50); Neutrophils % (auto) 37.3 %
[2023-06-09 05:23] LABS: Partial Thromboplastin Ratio 1.3; Partial Thromboplastin Time 37.3 Seconds (21.0-31.0)
--- NOTE | 2023-06-09 07:13 | Cardiology Consultation ---
Date of Consultation June 09, 2023 Assessment & Plan (1) Chest pain: (2) HAYWOOD (dyspnea on exertion): (3) HLD (hyperlipidemia): Plan 52-year-old female with past medical history of possible atrial fibrillation/flutter versus SVT. Presented for symptoms of exertional chest pain and shortness of breath. Cardiac workup has been unremarkable thus far without acute ischemic changes on EKG as well as a negative high-sensitivity troponin x 4. Will proceed with an exercise stress echo Continue cardiovascular risk reduction medications including aspirin 81 mg daily and atorvastatin 20 mg daily. Please refer to physician addendum for further information and full plan of care. Supervising Physician Co-Signing Physician Notes Attending Staff: Pt seen and evaluated with [facility] staff. Concur with observations and plans 52 yo woman presenting with chest pain Left sided chest discomfort Lightheadedness Similar presentation in 2020 EKG - Sinus 50-70's - no acute ischemic changes Troponin - negative x 4 No pleuritic component Pt started on Heparin Hx: Palpitations Possible afib? Atypical Chest Pain Hyperlipidemia - LDL 69 Smoker - 1.5 ppd Dye Allergy Plans: SBP @ goal HR 50's LDL 69 Continue Lipitor 20 mg po per day Continue ASA 81 mg po per day On Lopressor 50 mg po TID Please hold AM Beta sarah to grt to goal HR Risk stratification for underlying coronary disease Plans for Stress ECHOcardiogram NPO except for meds IF sx recur, would pretreat with steroids and do a coronary CTA Mart Freeman History of Present Illness Reason for Consultation: Chest pain and dyspnea on exertion [facility]ing Phys[facility] Attending Physician: Ciaran Jaquez MD History of Present Illness 52-year-old female who presented to emergency department due to symptoms of chest discomfort. She is a manager web at [employer] and was walking through her building hanging close and doing other exertional activities. Developed left-sided chest discomfort located under the left breast described as a pressure sensation but was also sharp at times with radiation to the left side of her jaw and left arm. She became dyspneic and a little lightheaded. Sat and rest with improvement in symptoms. Overall feels fatigue and lower stamina over the last 4 to 6 months. Has had increased stress at home, caring for her father who has cancer. EKG revealed normal sinus rhythm in the 70s, no acute ST segment changes, repeat EKG showed sinus bradycardia 49 bpm. High-sensitivity troponin negative x 4. D-dimer was mildly elevated however given her history of contrast dye allergy CTA of the chest was deferred. Venous Dopplers of the lower extremities negative for DVT. Blood pressures have been well-controlled. Heart rates have been bradycardic in the 50s. Echo pending. Heparin drip started by primary team. Per outpatient cardiology records dated 10/06/2021 patient had similar symptoms/concerns and a nuclear stress test was completed at this time which was nonischemic. As an outpatient, from a cardiology standpoint, she is maintained on metoprolol tartrate, aspirin 81 mg daily, and atorvastatin 20 mg daily. Upon entrance into the room patient resting comfortably in bed. She is currently chest pain-free and has not had any return of chest pain overnight. Denies any palpitations. No shortness of breath. No lightheadedness or dizziness. Will occasionally have ankle swelling, this is chronic for her. Telemetry revealing sinus bradycardia with an average heart rate in the 50s. No atrial fibrillation or flutter noted. Outpatient cardiology team: Follows with Daphney Rothman PA-C Past medical history: Subjective palpitations History of atrial fib/flutter versus SVT diagnosed fall 2019-never has been on anticoagulation History of atypical chest pain Dyslipidemia Tobacco use, 1.5 packs/day Contrast dye allergy Allergies Allergy/AdvReac Type Severity Reaction Status Date / Time Iodinated Contrast Media Allergy Intermediate CT SCAN Verified 06/08/23 17:14 DYE - HIVES, NEEDED EPI PEN AND BENADRYL lidocaine Allergy Intermediate Hives Verified 06/08/23 17:14 Home Medications Medication Instructions Recorded Confirmed Type albuterol sulfate 90 mcg/actuation 2 puff inhalation Q6H PRN ASTHMA 10/19/20 06/08/23 History aerosol inhaler ibuprofen 200 mg tablet 400 mg PO Q6H PRN Pain 10/19/20 06/08/23 History aspirin 81 mg tablet,delayed 81 mg PO QAM 03/20/21 06/08/23 History release atorvastatin 20 mg tablet 20 mg PO DAILY 06/08/23 06/08/23 History ibuprofen 800 mg tablet 800 mg PO TID PRN Pain 06/08/23 06/08/23 History metoprolol tartrate 50 mg tablet 50 mg PO TID 06/08/23 06/08/23 History trazodone 50 mg tablet 50 mg PO HS PRN Sleep 06/08/23 06/08/23 History Patient History Medical History Anxiety Asthma CONTROLLED Hiatal hernia History of abnormal cervical Pap smear HX 20 YR AGO, PRE CANCEROUS ...HYSTERECTOMY History of colon polyps CANCER FOUND IN POLYP...FOLLOW UP COLONOSCOPY MAY 2021 Tachycardia Surgical History History of arthroscopy of left knee History of cholecystectomy History of colonoscopy History of hysterectomy History of shoulder surgery LEFT Family History Grandfather Family history of esophageal cancer Other Family history of breast cancer in sister Social History Smoking Status: Current every day smoker Tobacco Type: Cigarettes Cigarettes Per Day: 45; Do You Dip or Chew Tobacco: No; Hx Alcohol Use: No Hx Substance Use: No Preferred Language: Chinese Communication Ability: Effective Dried Fruit Washer Required: No Beliefs That Will Affect Care: None Current Living Situation: Parent Current Living Situation Comment: lives with father Other Information That Helps Us Care for You: No Feels Safe at Home: Yes Safety Concerns: Feels Safe At This Time Assistive Devices: None Review of Systems Review of Systems: All systems reviewed & are unremarkable except as noted in HPI & below Physical Exam Physical Exam: Overweight Glasses S1S2 CTA B No C/C/E Warm and perfusing Constitutional: WD/WN, vitals as above well nourished; no acute distress Neck: normal visual inspection and trachea midline Respiratory: normal respiratory effort; no labored breathing and no cough Auscultation: + crackles (BL bases) Cardiovascular: Rate/Rhythm: regular rate and + bradycardic Heart Sounds: normal S1, normal S2 and + murmur (soft systolic murmur) Vessels: no JVD Extremities: no calf tenderness and no edema Chest (Breasts): Chest: normal inspection of chest Gastrointestinal (Abdomen): normal bowel sounds, soft, nontender, no hepatosplenomegaly Skin: no rashes, warm and dry Psychiatric: A+Ox3, euthymic affect Results & Data Vital Signs (Past 12 Hours) Vital Signs Temp Pulse Pulse Resp BP BP BP 06/09/23 06:54 36.4 C L 52 L 19 130/86 06/09/23 06:35 06/09/23 06:26 36.5 C 69 16 127/79 06/08/23 21:51 36.5 C 69 16 127/79 06/08/23 21:51 06/09/23 05:30 60 20 103/66 06/09/23 05:01 52 L 19 105/76 06/09/23 04:30 58 L 20 108/74 06/09/23 04:00 59 L 21 114/79 06/09/23 03:30 58 L 20 125/86 06/09/23 03:00 58 L 22 119/80 06/09/23 02:30 58 L 19 116/80 06/09/23 02:01 52 L 26 H 125/82 06/09/23 02:00 53 L 26 H 06/09/23 01:30 77 27 H 06/09/23 01:02 76 24 114/56 L 06/09/23 00:31 49 L 16 140/86 06/09/23 00:21 50 L 15 122/82 06/09/23 00:18 50 L 12 06/08/23 20:54 56 L 06/08/23 20:30 52 L 18 136/85 Pulse Ox Pulse Ox O2 Del Method O2 Del Method 06/09/23 06:54 93 Room Air 06/09/23 06:35 Room Air 06/09/23 06:26 93 Room Air 06/08/23 21:51 93 Room Air 06/08/23 21:51 93 Room Air 06/09/23 05:30 91 Room Air 06/09/23 05:01 93 Room Air 06/09/23 04:30 92 Room Air 06/09/23 04:00 92 Room Air 06/09/23 03:30 91 Room Air 06/09/23 03:00 91 Room Air 06/09/23 02:30 91 Room Air 06/09/23 02:01 92 Room Air 06/09/23 02:00 92 Room Air 06/09/23 01:30 94 Room Air 06/09/23 01:02 93 Room Air 06/09/23 00:31 95 Room Air 06/09/23 00:21 98 Room Air 06/09/23 00:18 06/08/23 20:54 06/08/23 20:30 95 Room Air Laboratory Results Cardiac Enzymes 06/08/23 06/08/23 06/08/23 Range/Units 16:02 18:55 21:15 AST 24 (13-39) U/L Troponin I High Sens 3.3 3.1 3.0 (0-14) pg/ml 06/09/23 Range/Units 04:23 AST (13-39) U/L Troponin I High Sens 2.7 (0-14) pg/ml Coagulation 06/08/23 06/08/23 06/09/23 Range/Units 16:02 17:57 04:23 PT Cancelled 11.0 APTT Cancelled 30.5 37.3 H Lipids 06/09/23 Range/Units 04:23 Triglycerides 85 (0-150) mg/dl Cholesterol 115 (0-200) mg/dl HDL Cholesterol 29 mg/dl Cholesterol/HDL Ratio 4.0 (0-5) CBC 06/08/23 06/08/23 06/09/23 Range/Units 16:02 17:58 04:23 WBC Cancelled 9.45 8.22 RBC Cancelled 5.04 4.91 Hgb Cancelled 15.6 15.0 Hct Cancelled 45.3 43.4 Plt Count Cancelled 238 217 Neut # (Auto) Cancelled 4.91 3.06 Lymph # (Auto) Cancelled 3.68 H 4.43 H [place] # (Auto) Cancelled 0.63 H 0.52 Eos # (Auto) Cancelled 0.15 0.15 Baso # (Auto) Cancelled 0.06 0.05 Comprehensive Metabolic Panel 06/08/23 06/09/23 Range/Units 16:02 04:23 Sodium 138 138 (136-145) mmol/L Potassium 3.8 3.7 (3.5-5.1) mmol/L Chloride 105 111 H (98-107) mmol/L Carbon Dioxide 25 23 (21-32) mmol/L BUN 8 8 (6-23) mg/dl Creatinine 0.71 0.59 L (0.6-1.2) mg/dl Glucose 91 89 (70-99(Fasting)) mg/dl Calcium 9.9 8.7 (8.6-10.3) mg/dl AST 24 (13-39) U/L ALT 28 (7-52) U/L Alkaline Phosphatase 104 (34-104) U/L Total Protein 8.5 H (6.0-8.3) gm/dl Albumin 4.7 (3.4-5.0) gm/dl Intake and Output 06/08/23 06/09/23 06/09/23 22:59 06:59 14:59 Intake Total 500 / 609.083 109.083 / 609.083 Balance 500 / 609.083 109.083 / 609.083 Intake: IV 500 / 609.083 109.083 / 609.083 Heparin Sodium/Dextrose 25,000 109.083 / 109.083 units In 500 ml @ 850 UNITS/HR 17 mls/hr IV .Q24H DINAH Rx#: [id number] Sodium Chloride 0.9% 500 ml @ 500 / 500 999 mls/hr IV .Q31M STA Rx#: [id number] Other: Weight 95.6 kg 94.7 kg Weight Measurement Method Chair Scale Standing Scale Diagnostic Findings ECHO PENDING* OUTPATIENT ZIO monitor report reviewed dated August 2022: CONCLUSIONS: Duration 13 days, 22 hours Indication: Supraventricular tachycardia Patient had a min HR of 44 bpm, max HR of 128 bpm, and avg HR of 74 bpm. Predominant underlying rhythm was Sinus Rhythm. Isolated SVEs were rare (<1.0%), SVE Couplets were rare (<1.0%), and SVE Triplets were rare (<1.0%). Isolated VEs were rare (<1.0%), and no VE Couplets or VE Triplets were present. 14 patient triggered events and 7 diary events were submitted. The events correlated with sinus rhythm ranging from 61 beats per minute to 105 beats per minute as well as sinus rhythm with premature atrial contractions and sinus rhythm with premature ventricular contractions. The overall premature atrial contraction burden was rare, accounting for less than 1% of the total QRS complexes. The overall burden of premature ventricular contractions was rare, accounting for less than 1% of the total QRS complexes. OUTPATIENT Nuclear stress test October 2021: Interpretation Summary Gated SPECT imaging reveals normal myocardial thickening and wall motion. The left ventricular ejection fraction was calculated to be >65%. Lexiscan nuclear cardiac stress test negative for ischemia. OUTPATIENT Echo 10/2020: Interpretation Summary The examination is adequate to evaluate the referral indication. The LV wall thickness is normal. The left ventricular wall motion is normal. The qualitative LV ejection fraction is 55-59% (normal). The left ventricular diastolic function is mildly abnormal (grade I). There is no evidence of pulmonary hypertension.
[2023-06-09 07:54] LABS: Partial Thromboplastin Ratio 1.4; Partial Thromboplastin Time 39.3 Seconds (21.0-31.0)
[2023-06-09] MEDS ORDERED: ASPIRIN 81 MG ECTAB PO SCH (09:00)
[2023-06-09] MEDS ORDERED: ATORVASTATIN 20 MG TAB PO SCH (09:00)
[2023-06-09] MEDS ORDERED: METOPROLOL TARTRATE 25 MG TAB PO SCH (09:00)
--- NOTE | 2023-06-09 10:33 | Nuclear Medicine Report ---
NUCLEAR PULMONARY PERFUSION SCAN CLINICAL HISTORY: Atypical chest pain. Elevated d-dimer. COMPARISON STUDY: Chest x-ray dated 06/08/2023. TECHNIQUE: Nuclear perfusion scan of both lungs was performed following the IV administration of 5.1 mCi of technetium 99m MAA. Images were acquired in the anterior, posterior, and oblique projections. FINDINGS: A chest x-ray performed 06/08/2023 shows no acute cardiopulmonary abnormality No segmental perfusion defects are identified on the perfusion imaging. IMPRESSION: There are no perfusion defects identified typical for pulmonary embolus. ACT 112: Negative or not required by law. Electronically signed by: Jaiden Astudillo M.D. 06/09/2023 10:31 AM
--- NOTE | 2023-06-09 11:08 | Electrocardiogram Report ---
Test Reason : Blood Pressure : / mmHG Vent. Rate : 049 BPM Atrial Rate : 049 BPM P-R Int : 206 ms QRS Dur : 076 ms QT Int : 462 ms P-R-T Axes : 037 -08 019 degrees QTc Int : 417 ms Sinus bradycardia Cannot rule out Anterior infarct (cited on or before 19-OCT-2020) Abnormal ECG When compared with ECG of 08-JUN-2023 15:51, (unconfirmed) No significant change was found Confirmed by Benjy Funk ([id number] on 06/09/2023 11:08:19 AM Referred By: REFERRED SELF Confirmed By:Chris Funk
--- NOTE | 2023-06-09 11:10 | Electrocardiogram Report ---
Test Reason : Blood Pressure : / mmHG Vent. Rate : 072 BPM Atrial Rate : 072 BPM P-R Int : 192 ms QRS Dur : 078 ms QT Int : 386 ms P-R-T Axes : 040 -08 037 degrees QTc Int : 422 ms Normal sinus rhythm Poor R wave progression, consider anterior ID vs. lead placement vs. LVH When compared with ECG of 19-OCT-2020 14:12, Premature supraventricular complexes are no longer Present Confirmed by Benjy Funk ([id number] on 06/09/2023 11:10:13 AM Referred By: REFERRED SELF Confirmed By:Chris Funk
--- NOTE | 2023-06-09 13:09 | Hospitalist Progress Note ---
Date of Service June 09, 2023 Assessment & Plan (1) Chest pain: Plan: Chest Pain: R/O ACS Risk factors: H/O Obesity, HTN, HLP, Tobacco use disorder, +Family history Troponin:Negative EKG shows: NSR, poor R wave progression, nonspecific ST-T wave changes CXR: Unremarkable ECHO/Stress Jyotsna:Pending Lipid panel Normal Continue Aspirin, statin Cardiology on board Counseled to quit smoking Abnormal D-dimer --Venous Doppler:There is no sonographic evidence of deep venous thrombosis identified in the right or left lower extremity. --V/Q:There are no perfusion defects identified typical for pulmonary embolus. PSVT/paroxysmal atrial fibrillation currently sinus bradycardia Metoprolol held Await for cardiology recommendations Monitor Hypertension Stable Monitor Hyperlipidemia Continue statin Bronchial asthma Ongoing tobacco abuse No signs of asthma exacerbation Counseled to quit tobacco use DVT Px: Was on IV heparin Code Status Full code Admission and Anticipated Discharge Date Admission Date: June 08, 2023 Subjective Patient is seen and examined at bedside Chest pain resolved Denies any dyspnea, dizziness, nausea, vomiting, abdominal pain Had stress test earlier today Family at bedside No new complaints Review of Systems Review of Systems: All systems reviewed & are unremarkable except as noted in Subjective Physical Exam Physical Exam: Physical Exam: Vitals signs as noted above General Appearance:Obese,no apparent distress Head: normocephalic, Atraumatic Eyes: normal inspection, EOMI Neck: supple, Trachea midline Respiratory/Chest: Decreased breath sounds, basal crackles, No accessory muscle use Cardiovascular: S1, S2, + murmur Abdomen/GI:Soft, Non tender, Bowel sounds present Extremities/Musculoskeletal:normal inspection, no edema Neurologic/Psych:AAOX3, grossly no focal neurological deficits Skin: normal color, warm Results & Data Results & Data Vital Signs (Past 12 Hours) Vital Signs Temp Pulse Pulse Resp BP BP BP 06/09/23 11:01 36.5 C 53 L 19 135/80 06/09/23 09:26 06/09/23 06:54 36.4 C L 52 L 19 130/86 06/09/23 06:35 06/09/23 06:26 36.5 C 69 16 127/79 06/09/23 05:30 60 20 103/66 06/09/23 05:01 52 L 19 105/76 06/09/23 04:30 58 L 20 108/74 06/09/23 04:00 59 L 21 114/79 06/09/23 03:30 58 L 20 125/86 06/09/23 03:00 58 L 22 119/80 06/09/23 02:30 58 L 19 116/80 06/09/23 02:01 52 L 26 H 125/82 06/09/23 02:00 53 L 26 H 06/09/23 01:30 77 27 H 06/09/23 01:02 76 24 114/56 L Pulse Ox O2 Del Method 06/09/23 11:01 94 Room Air 06/09/23 09:26 Room Air 06/09/23 06:54 93 Room Air 06/09/23 06:35 Room Air 06/09/23 06:26 93 Room Air 06/09/23 05:30 91 Room Air 06/09/23 05:01 93 Room Air 06/09/23 04:30 92 Room Air 06/09/23 04:00 92 Room Air 06/09/23 03:30 91 Room Air 06/09/23 03:00 91 Room Air 06/09/23 02:30 91 Room Air 06/09/23 02:01 92 Room Air 06/09/23 02:00 92 Room Air 06/09/23 01:30 94 Room Air 06/09/23 01:02 93 Room Air Laboratory Results Short CBC 06/08/23 06/08/23 06/09/23 Range/Units 16:02 17:58 04:23 WBC Cancelled 9.45 8.22 Hgb Cancelled 15.6 15.0 Hct Cancelled 45.3 43.4 Plt Count Cancelled 238 217 BMP 06/08/23 06/09/23 16:02 04:23 Sodium 138 138 Potassium 3.8 3.7 Chloride 105 111 H Carbon Dioxide 25 23 BUN 8 8 Creatinine 0.71 0.59 L Glucose 91 89 Calcium 9.9 8.7 Liver Function 06/08/23 Range/Units 16:02 Total Bilirubin 0.8 (0.2-1.0) mg/dl AST 24 (13-39) U/L ALT 28 (7-52) U/L Alkaline Phosphatase 104 (34-104) U/L Albumin 4.7 (3.4-5.0) gm/dl
--- NOTE | 2023-06-09 15:22 | Discharge Summary ---
Date of Service June 09, 2023 Admission HPI Per Admitting Provider History obtained from patient, family, and records. Medical history significant for PSVT, paroxysmal atrial flutter as per records, hypertension, hyperlipidemia, bronchial asthma, ongoing tobacco abuse. Last week, patient had transient visual disturbance symptoms as if she was looking through a drop of water. No headache symptoms. No facial weakness or slurred speech symptoms. No arm or leg weakness. No consultations done. Patient not compliant with home aspirin because she is prone to bleeding. Around 1 PM today, patient noted left-sided chest pain going to her left arm and left jaw. Some shortness of breath. Non pleuritic chest pain. Admits to a lot of of personal and work stress. Medical History as above Surgical History : Left knee surgery, cholecystectomy, SHYLA Family History : Heart disease, breast cancer, DVT, DM, mood disorder Personal/Social history : 1 pack daily, no EtOH intake, [employer] Admission Exam Per Admitting Provider GENERAL: Comfortable, obese, no respiratory distress SKIN: Normal color, warm HEENT: [place] palpebral conjunctivae, no ptosis, moist buccal mucosa NECK : Supple, no tenderness CHEST : CTA, short neck, no tenderness HEART : Bradycardic, no obvious murmurs ABDOMEN: Some distention, nontender EXTREMITIES : No LE swelling/tenderness, no other conspicuous deformities noted NEUROLOGIC : Coherent, no facial asymmetry, no other gross focality Principal Diagnosis Chest Pain Tobacco use disorder Discharge Data Allergies Allergy/AdvReac Type Severity Reaction Status Date / Time Iodinated Contrast Media Allergy Intermediate CT SCAN Verified 06/08/23 17:14 DYE - HIVES, NEEDED EPI PEN AND BENADRYL lidocaine Allergy Intermediate Hives Verified 06/08/23 17:14 Consultations 06/08/23 19:58 ED Decision to Admit Stat 06/09/23 02:06 Consult Cardiology Routine Ordered Studies 06/08/23 16:[address] [CT head/brain wo con] Stat 06/08/23 20:54 MRI Angio Brain [MR angio head wo con] Stat MRI Brain [MR brain wo con] Stat 06/08/23 20:55 US venous doppler LE Stat Hospital Course (1) Chest pain: Chest Pain: R/O ACS Risk factors: H/O Obesity, HTN, HLP, Tobacco use disorder, +Family history Troponin:Negative EKG shows: NSR, poor R wave progression, nonspecific ST-T wave changes CXR: Unremarkable ECHO: Normal left ventricle wall thickness. EF 55 to 60%. Grade 2 diastolic dysfunction. No significant valvular disease. Stress Test: Negative Lipid panel Normal Continue Aspirin, statin Appreciate cardiology input Counseled to quit smoking Advised outpatient coronary CTA Needs follow-up with cardiology upon discharge Abnormal D-dimer --Venous Doppler:There is no sonographic evidence of deep venous thrombosis identified in the right or left lower extremity. --V/Q:There are no perfusion defects identified typical for pulmonary embolus. PSVT/paroxysmal atrial fibrillation currently sinus bradycardia Continue Metoprolol per Cardiology Await for cardiology recommendations Monitor Hypertension Stable Monitor Hyperlipidemia Continue statin Bronchial asthma Ongoing tobacco abuse No signs of asthma exacerbation Counseled to quit tobacco use DVT Px: Was on IV heparin Code Status Full code Disposition Home Total Time Total Time Spent Total Time Spent (In Minutes): 65 minutes Discharge Plan Discharge Items Patient Disposition: Home - Self-Care Reason For Visit: CP Discharge Diagnosis: Chest Pain Tobacco use disorder Activity: Per Instructions section Exercise/Sports: Gradually increase as tolerated Non-emergency contact: Primary Care Provider and Motor Vehicle Licence Examiner Call non-emergency contact if: you have any medication questions, your symptoms worsen, your pain is concerning for you and you have a fever Follow-up/Referrals: Ant Jacobs MD [Primary Care Provider] - (Date & Time 06/15/2023 11:20 AM Provider Celeste Ramirez MD Department Family Medicine [facility] ) Diet: Heart Healthy Addtl Attending Provider Instructions: Follow-up with your primary care physician Dr. Jacobs on 06/15/2023 11:20 AM Follow-up with your plumbing designer in 3-4 weeks for outpatient Coronary CTA as recommended by your plumbing designer. --- Quit smoking tobacco as advised. Seek immediate medical attention if your symptoms reoccur or worsen Please take all medications as instructed on discharge list below. Please call if you have any questions or problems. You can reach a [facility] hospitalist on duty at [facility] 24 hours a day by calling [phone] Pending Studies at Discharge: No Stand-Alone Forms: My [facility] [employer], Smoking Cessation Medications and DC Order Prescriptions: Continued ibuprofen 200 mg Tablet 400 mg PO Q6H PRN (Reason: Pain) albuterol sulfate 90 mcg/actuation Hfa Aerosol Inhaler 2 puff INHALATION Q6H PRN (Reason: ASTHMA) aspirin 81 mg Tablet,Delayed Release (Dr/Ec) 81 mg PO QAM atorvastatin 20 mg tablet 20 mg PO DAILY metoprolol tartrate 50 mg tablet 50 mg PO TID trazodone 50 mg tablet 50 mg PO HS PRN (Reason: Sleep) Discontinued ibuprofen 800 mg tablet 800 mg PO TID PRN (Reason: Pain) Discharge Orders: Discharge Order (Routine); Ordered 06/09/23 Ordered By: Ciaran Jaquez Admission Data Admit Date/Time: 06/08/23 20:57 Attending Provider: Ciaran Jaquez Admit Provider: Lyle Quinteros Primary Care Provider: Ant Jacobs Other Providers: Lyle Quinteros ; Sidra Abrams ; Dank Linn ; Calvin Pereira ; Benjamin Glass ; Santosh Lockett ; Eitan Malik ; Daphney Rothman ; Pilar Deleon ; Sidra Walker ; Ortiz Valderrama ; Earnest Giordano ; Mart Freeman
== END 2023-06-09 17:20 | disposition home or self-care (01) | DRG 313 ==
LOC: ED 15:43 → EDINP 20:57 → 2S 21:51